=== PATIENT | female | born 1940 | race Caucasian/White ===

== ENCOUNTER → 2016-11-08 | Outpatient (CLI) | payer MEDICARE, BC ==
[~2016-11-08] MED LIST: B COMPLETE1 EACH PO; BIOTENE DRY M1000 ML; CALCIUM CITRATE1 TA1 PO; CALCIUM600 M2 PO; CARDI-OMEGA1000 MG PO; CARDIZEM120 M1 PO; CARDIZEM60 MG PO; CEPHALEXIN250 M2 PO; CETIRIZINE10 MG PO; CIPRO250 M1 PO; CLONAZEPAM0.5 MG PO; CLONAZEPAM1 MG PO; CLONAZEPAM2 MG PO; COUMADIN2.5 MG PO; DEMADEX 20MG20 MG; DEMADEX20 MG PO; DIGOXIN PO; DIGOXIN0.125 MG PO; DIGOXIN0.25 MG PO; DILAUDID 2MG TAB2 MG PO; DILTIAZEM CD120 MG PO; HYDROCODONE/IBU1 TA1 PO; IMDUR 30MG30 MG/TAB PO; IMURAN50 MG PO; ISOSORBIDE30 MG PO; K-POTASSIUM CH20 MEQ PO; KLONOPIN 1MG1 M1 PO; LEVAQUIN 750MG750 M1 PO; LIPITOR 10MG10 MG PO; MACROBID 1100 MG/CAP PO; MELOXICAM15 MG PO; MORPHINE SULFAT15 M7 PO; MS CONTIN 115 MG/TAB PO; MS CONTIN 660 MG/TAB PO; MS CONTIN15 MG PO; MS CONTIN30 MG PO; MS CONTIN60 MG PO; MSIR15 M1 PO; MSIR15 MG PO; MSIR30 M1 PO; NIACIN PO; POTASSIUM CHLO20 ME4 PO; POTASSIUM CHLO20 MEQ PO; PREDNISONE10 MG PO; PRENATAL FORMU1 EAC2 PO; PRENATAL MULTI1 EACH PO; PRENATAL1 TA2 PO; PROBIOTIC1 EAC1 PO; PROVENTIL0.09 MG/A1 IH; Patient's Own Medication PO; REQUIP2 MG PO; REQUIP3 M1 PO; RITE AID KRILL500 MG PO; SOTALOL HCL160 MG PO; SYSTANE LUBRICAN5 ML OP; TRAZODONE150 MG PO; VESICARE PO; VITAMIN D2000 I1 PO; WARFARIN2 MG PO; XARELTO20 MG PO; ZOFRAN ODT8 M1 PO; [UNRECOGNIZED DRUG - OTHER] PO
== END ==
LOC: LAB 11:08
DX: I50.32 Chronic diastolic (congestive) heart failure (principal); I48.0 Paroxysmal atrial fibrillation; M48.02 Spinal stenosis, cervical region

== ENCOUNTER → 2016-12-27 | Outpatient (CLI) | payer MEDICARE, BC | LOC: RAD 14:20 | DX: M54.2 Cervicalgia (principal) ==

== ENCOUNTER 2017-03-06 18:20 | Emergency (ER) | payer MEDICARE ==
[~2017-03-06] VITALS: Wt 51.7 kg
[2017-03-06 20:25] VITALS: BP 134/79
== END 2017-03-06 20:25 | disposition home or self-care (01) ==
LOC: ED 18:20
DX: S13.4XXA Sprain of ligaments of cervical spine, initial encounter (principal); Y04.8XXA Assault by other bodily force, initial encounter; Y92.009 Unspecified place in unspecified non-institutional (private) residence as the place of occurrence of the external cause; G90.50 Complex regional pain syndrome I, unspecified; Z86.73 Personal history of transient ischemic attack (TIA), and cerebral infarction without residual deficits; Z98.1 Arthrodesis status; Z79.01 Long term (current) use of anticoagulants; Z95.0 Presence of cardiac pacemaker; I48.91 Unspecified atrial fibrillation

== ENCOUNTER → 2017-09-10 | Outpatient (CLI) | payer MEDICARE ==
[2017-09-10 12:23] LABS: BASO # 0.1 (0.02-0.10); EOS # 0.5 (0.04-0.40); EOS % 3.8 % (1.0-5.0); HEMATOCRIT 44.2 % (37.0-47.0); HEMOGLOBIN 13.4 g/dL (12.5-16.0); LYMPH# 2.3 (1.50-4.00); MEAN CELL VOLUME 92 fl (78-100); MEAN CORPUSCULAR HEMOGLOBIN 28 pg (27-31); MEAN CORPUSCULAR HGB CONC 30 g/dL (33-37); MEAN PLATELET VOLUME 9.5 fl (7.4-10.4); MONO # 1.2 (0.20-0.80); PLATELET COUNT 336 K/mm3 (130-400); RED BLOOD COUNT 4.81 M/mm3 (4.10-5.30); RED CELL DISTRIBUTION WIDTH 14.4 % (11.5-14.5); WHITE BLOOD COUNT 13.7 K/mm3 (4.8-10.8)
[2017-09-10 12:26] LABS: NEU # 9.4 (1.40-6.50)
[2017-09-10 12:53] LABS: ALBUMIN 4.4 g/dL (3.5-5.0); BUN/CREATININE RATIO 25.2 (6.0-26.0); CALCIUM 9.6 mg/dL (8.4-10.2); POTASSIUM 4.6 mmol/L (3.6-5.0); TOTAL BILIRUBIN 0.8 mg/dL (0.2-1.3)
[2017-09-10 13:26] LABS: ERYTHROCYTE SEDIMENTATION RATE 24 mm/hr (0-30)
== END ==
LOC: RAD 11:30
PROVIDERS: Internal Medicine
DX: M19.072 Primary osteoarthritis, left ankle and foot (principal); M77.32 Calcaneal spur, left foot; M77.31 Calcaneal spur, right foot; I48.0 Paroxysmal atrial fibrillation; I50.32 Chronic diastolic (congestive) heart failure; R32 Unspecified urinary incontinence; Z88.8 Allergy status to other drugs, medicaments and biological substances; Z98.1 Arthrodesis status

== ENCOUNTER 2018-05-29 19:25 | Emergency (ER) | payer MEDICARE ==
[~2018-05-29] VITALS: Ht 154.9 cm; Wt 45.5 kg
[2018-05-29 21:19] LABS: BASO # 0.1 (0.02-0.10); EOS # 0.4 (0.04-0.40); EOS % 4.4 % (1.0-5.0); HEMATOCRIT 37.7 % (37.0-47.0); HEMOGLOBIN 12.2 g/dL (12.5-16.0); LYMPH# 2.3 (1.50-4.00); MEAN CELL VOLUME 92 fl (78-100); MEAN CORPUSCULAR HEMOGLOBIN 30 pg (27-31); MEAN CORPUSCULAR HGB CONC 32 g/dL (33-37); MEAN PLATELET VOLUME 10.3 fl (7.4-10.4); NEU # 4.4 (1.40-6.50); PLATELET COUNT 253 K/mm3 (130-400); RED BLOOD COUNT 4.09 M/mm3 (4.10-5.30); RED CELL DISTRIBUTION WIDTH 14.8 % (11.5-14.5); WHITE BLOOD COUNT 8.2 K/mm3 (4.8-10.8)
[2018-05-29 21:23] LABS: ALBUMIN 4.4 g/dL (3.5-5.0); CALCIUM 9.5 mg/dL (8.4-10.2); POTASSIUM 4.3 mmol/L (3.6-5.0); TOTAL BILIRUBIN 0.5 mg/dL (0.2-1.3); TOTAL PROTEIN 7.1 g/dL (6.3-8.2)
[2018-05-29 21:31] LABS: URINE APPEARANCE HAZY; URINE BILIRUBIN NEGATIVE (NEGATIVE); URINE BLOOD 50 ery/uL (NEGATIVE); URINE COLOR YELLOW; URINE GLUCOSE NEGATIVE (NEGATIVE); URINE KETONE NEGATIVE (NEGATIVE); URINE LEUKOCYTE ESTERASE 1+ (NEGATIVE); URINE NITRATE NEGATIVE (NEGATIVE); URINE PROTEIN(semi-quant) TRACE mg/dL (NEGATIVE); URINE UROBILINOGEN NORMAL (NORMAL)
[2018-05-29 21:32] LABS: URINE MUCUS PRESENT (NOT PRESENT)
[2018-05-29 23:31] VITALS: BP 164/91
[2018-05-29] MEDS ORDERED: MACROBID 100 M100 MG PO (23:41)
[2018-05-30 07:14] LABS: LIPASE 413 U/L (23-300)
== END 2018-05-29 23:31 | disposition home or self-care (01) ==
LOC: ED 19:25
PROVIDERS: Nurse Practitioner Family
DX: G43.909 Migraine, unspecified, not intractable, without status migrainosus (principal); N39.0 Urinary tract infection, site not specified; I11.0 Hypertensive heart disease with heart failure; I50.9 Heart failure, unspecified; Z86.73 Personal history of transient ischemic attack (TIA), and cerebral infarction without residual deficits; Z91.81 History of falling; Z79.899 Other long term (current) drug therapy; G89.29 Other chronic pain; G25.81 Restless legs syndrome; G62.9 Polyneuropathy, unspecified; I08.0 Rheumatic disorders of both mitral and aortic valves; Z79.01 Long term (current) use of anticoagulants
CPT/HCPCS: J1885; J2270; J2405; J7030

== ENCOUNTER → 2018-06-11 | Outpatient (CLI) | payer MEDICARE ==
[2018-06-02 19:02] VITALS: BP 115/70
[~2018-06-11] MED LIST changes: +MACROBID 100 M100 MG PO
== END ==
LOC: LAB 12:15
DX: M54.9 Dorsalgia, unspecified (principal)

== ENCOUNTER 2018-09-02 19:09 | Emergency (ER) | payer MEDICARE ==
[~2018-09-02] VITALS: Ht 154.9 cm; Wt 49.1 kg
[2018-09-02 19:59] LABS: HEMATOCRIT 37.1 % (37.0-47.0); HEMOGLOBIN 11.3 g/dL (12.5-16.0); MEAN CELL VOLUME 96 fl (78-100); MEAN CORPUSCULAR HEMOGLOBIN 29 pg (27-31); MEAN CORPUSCULAR HGB CONC 31 g/dL (33-37); PLATELET COUNT 222 K/mm3 (130-400); RED BLOOD COUNT 3.86 M/mm3 (4.10-5.30); RED CELL DISTRIBUTION WIDTH 14.8 % (11.5-14.5); WHITE BLOOD COUNT 8.1 K/mm3 (4.8-10.8)
[2018-09-02 20:14] LABS: ALBUMIN 4.3 g/dL (3.5-5.0); CALCIUM 9.3 mg/dL (8.4-10.2); POTASSIUM 3.7 mmol/L (3.6-5.0); TOTAL BILIRUBIN 0.6 mg/dL (0.2-1.3)
[2018-09-02] MEDS ORDERED: XARELTO15 MG PO (20:17)
[2018-09-02 20:43] LABS: LYMPHOCYTE 17 % (20-51); MONOCYTE 17 % (3-10); NEUTROPHILS 66 % (42-75)
[2018-09-02 20:44] LABS: OVALOCYTES 1+
[2018-09-02 21:17] VITALS: BP 140/84
== END 2018-09-02 21:40 | disposition home or self-care (01) ==
LOC: ED 19:09
PROVIDERS: Nurse Practitioner Family
DX: I11.0 Hypertensive heart disease with heart failure (principal); I50.9 Heart failure, unspecified; I48.91 Unspecified atrial fibrillation; Z79.01 Long term (current) use of anticoagulants; G89.29 Other chronic pain; R05 Cough; R07.89 Other chest pain; F41.9 Anxiety disorder, unspecified; F32.9 Major depressive disorder, single episode, unspecified; G90.50 Complex regional pain syndrome I, unspecified; G62.9 Polyneuropathy, unspecified; I08.0 Rheumatic disorders of both mitral and aortic valves; Z86.73 Personal history of transient ischemic attack (TIA), and cerebral infarction without residual deficits; Z79.899 Other long term (current) drug therapy; Z79.891 Long term (current) use of opiate analgesic

== ENCOUNTER → 2018-12-31 | Outpatient (CLI) | payer MEDICARE ==
[~2018-12-31] MED LIST changes: +XARELTO15 MG PO
== END ==
LOC: RAD 13:07
DX: M81.0 Age-related osteoporosis without current pathological fracture (principal); M61.40 Other calcification of muscle, unspecified site; M17.2 Bilateral post-traumatic osteoarthritis of knee; M19.011 Primary osteoarthritis, right shoulder

== ENCOUNTER → 2019-10-19 | Outpatient (CLI) | payer MEDICARE ==
[2019-10-19 14:40] LABS: HEMATOCRIT 30.2 % (37.0-47.0); HEMOGLOBIN 8.8 g/dL (12.5-16.0); MEAN PLATELET VOLUME 9.2 fl (7.4-10.4); RED BLOOD COUNT 3.35 M/mm3 (4.10-5.30); WHITE BLOOD COUNT 8.8 K/mm3 (4.8-10.8)
[2019-10-19 15:00] LABS: ALBUMIN 3.7 g/dL (3.4-4.8)
[2019-10-19 15:01] LABS: POTASSIUM 4.6 mmol/L (3.5-5.1)
[2019-10-19 15:02] LABS: CALCIUM 9.1 mg/dL (8.3-10.5)
[2019-10-19 15:03] LABS: TOTAL PROTEIN 6.7 g/dL (6.2-8.1)
[2019-10-19 15:05] LABS: TOTAL BILIRUBIN 0.7 mg/dL (0.2-1.2)
== END ==
LOC: RAD 14:10
PROVIDERS: Family Medicine
DX: K62.5 Hemorrhage of anus and rectum (principal); I50.32 Chronic diastolic (congestive) heart failure; D50.0 Iron deficiency anemia secondary to blood loss (chronic); J45.21 Mild intermittent asthma with (acute) exacerbation; I25.10 Atherosclerotic heart disease of native coronary artery without angina pectoris; I05.8 Other rheumatic mitral valve diseases; I06.0 Rheumatic aortic stenosis

== ENCOUNTER 2019-12-01 22:08 | Emergency (ER) | payer MEDICARE ==
[2019-12-01] MEDS ORDERED: NIFEREX-15150 MG/CAP PO (22:41)
[2019-12-01] MEDS ORDERED: EZETIMIBE10 M1 PO (22:41)
[2019-12-01] MEDS ORDERED: WARFARIN SODIU2.5 MG PO (22:42)
[2019-12-01] MEDS ORDERED: FUROSEMIDE20 MG PO (22:42)
[2019-12-01] MEDS ORDERED: B COMPLEX1 EACH PO (22:43)
[2019-12-01] MEDS ORDERED: KLONOPIN 0.5MG0.5 MG PO (22:45)
[2019-12-01] MEDS ORDERED: VITAMIN D325 MCG PO (22:45)
[2019-12-01] MEDS ORDERED: KRILL OIL500 MG PO (22:46)
[2019-12-01] MEDS ORDERED: LOPRESSOR 225 MG/TAB PO (22:47)
[2019-12-01] MEDS ORDERED: ROPINIROLE HYDRO3 MG PO (22:48)
[2019-12-01] MEDS ORDERED: PANTOPRAZOLE SO40 MG PO (22:48)
[2019-12-01] MEDS ORDERED: NITROSTAT0.4 M1 SL (22:48)
[2019-12-01] MEDS ORDERED: SYSTANE1 EACH OU (22:49)
[2019-12-01] MEDS ORDERED: VITAMIN B12 1541 TAB PO (22:50)
[2019-12-01] MEDS ORDERED: VITAMIN C500 M7 PO (22:51)
[2019-12-01 23:26] LABS: HEMATOCRIT 40.6 % (37.0-47.0); HEMOGLOBIN 12.2 g/dL (12.5-16.0); MEAN CELL VOLUME 84 fl (78-100); MEAN CORPUSCULAR HEMOGLOBIN 25 pg (27-31); MEAN CORPUSCULAR HGB CONC 30 g/dL (33-37); MEAN PLATELET VOLUME 9.9 fl (7.4-10.4); PLATELET COUNT 314 K/mm3 (130-400); RED BLOOD COUNT 4.81 M/mm3 (4.10-5.30); RED CELL DISTRIBUTION WIDTH 17.2 % (11.5-14.5); WHITE BLOOD COUNT 11.2 K/mm3 (4.8-10.8)
[2019-12-01 23:34] LABS: ALBUMIN 4.8 g/dL (3.4-4.8); POTASSIUM 4.5 mmol/L (3.5-5.1)
[2019-12-01 23:36] LABS: CALCIUM 10.4 mg/dL (8.3-10.5)
[2019-12-01 23:37] LABS: TOTAL PROTEIN 8.2 g/dL (6.2-8.1)
[2019-12-01 23:39] LABS: TOTAL BILIRUBIN 0.5 mg/dL (0.2-1.2)
[2019-12-01 23:41] LABS: PROTHROMBIN TIME 15.8 SECONDS (9.0-12.0)
[2019-12-01 23:44] LABS: HYPOCHROMIA 1+; LYMPHOCYTE 8 % (20-51); MONOCYTE 7 % (3-10); NEUTROPHILS 83 % (42-75)
[2019-12-01 23:45] LABS: OVALOCYTES 1+; TARGET CELLS 1+
[2019-12-02 00:51] LABS: URINE APPEARANCE HAZY; URINE BILIRUBIN NEGATIVE (NEGATIVE); URINE BLOOD NEGATIVE (NEGATIVE); URINE COLOR YELLOW; URINE GLUCOSE NEGATIVE (NEGATIVE); URINE KETONE NEGATIVE (NEGATIVE); URINE LEUKOCYTE ESTERASE NEGATIVE (NEGATIVE); URINE NITRATE NEGATIVE (NEGATIVE); URINE PROTEIN(semi-quant) TRACE mg/dL (NEGATIVE); URINE UROBILINOGEN NORMAL (NORMAL); URINE WBC 0-1 /hpf (0-3)
[2019-12-02 02:05] VITALS: BP 105/55
== END 2019-12-02 02:04 | disposition home or self-care (01) ==
LOC: ED 22:08
PROVIDERS: Nurse Practitioner Family
DX: R19.7 Diarrhea, unspecified (principal); E86.0 Dehydration; I13.0 Hypertensive heart and chronic kidney disease with heart failure and stage 1 through stage 4 chronic kidney disease, or unspecified chronic kidney disease; I50.9 Heart failure, unspecified; N18.9 Chronic kidney disease, unspecified; I48.91 Unspecified atrial fibrillation; F41.9 Anxiety disorder, unspecified; F32.9 Major depressive disorder, single episode, unspecified; G62.9 Polyneuropathy, unspecified; G25.81 Restless legs syndrome; I08.0 Rheumatic disorders of both mitral and aortic valves; Z79.01 Long term (current) use of anticoagulants; Z86.718 Personal history of other venous thrombosis and embolism; Z90.49 Acquired absence of other specified parts of digestive tract; Z95.0 Presence of cardiac pacemaker
CPT/HCPCS: J7120

== ENCOUNTER → 2019-12-02 | Outpatient (CLI) | payer MEDICARE ==
[~2019-12-02] MED LIST changes: +B COMPLEX1 EACH PO; +EZETIMIBE10 M1 PO; +FUROSEMIDE20 MG PO; +KLONOPIN 0.5MG0.5 MG PO; +KRILL OIL500 MG PO; +LOPRESSOR 225 MG/TAB PO; +NIFEREX-15150 MG/CAP PO; +NITROSTAT0.4 M1 SL; +PANTOPRAZOLE SO40 MG PO; +ROPINIROLE HYDRO3 MG PO; +SYSTANE1 EACH OU; +VITAMIN B12 1541 TAB PO; +VITAMIN C500 M7 PO; +VITAMIN D325 MCG PO; +WARFARIN SODIU2.5 MG PO
[2019-12-02 02:05] VITALS: BP 105/55
== END ==
LOC: AMSURD 15:42 → LAB 15:42
DX: R00.1 Bradycardia, unspecified (principal)

== ENCOUNTER 2020-01-12 20:06 | Emergency (ER) | payer MEDICARE ==
[~2020-01-12] VITALS: Wt 47.7 kg
[~2020-01-12 20:06] MED LIST changes: -DIGOXIN PO; -KLONOPIN 0.5MG0.5 MG PO; +KLONOPIN 1MG1 MG PO; +LANOXIN125 MCG PO; +SYSTANE COMPLET10 ML OU; -SYSTANE1 EACH OU
[2020-01-12] MEDS ORDERED: COUMADIN 22.5 MG/TAB PO (20:30)
[2020-01-12] MEDS ORDERED: ROPINIROLE HCL1 MG PO (20:32)
[2020-01-12] MEDS ORDERED: HAIR, SKIN & N1 EACH PO (20:33)
[2020-01-12 21:10] LABS: HEMATOCRIT 34.4 % (37.0-47.0); HEMOGLOBIN 10.1 g/dL (12.5-16.0); MEAN CELL VOLUME 92 fl (78-100); MEAN CORPUSCULAR HEMOGLOBIN 27 pg (27-31); MEAN PLATELET VOLUME 9.4 fl (7.4-10.4); PLATELET COUNT 233 K/mm3 (130-400); RED BLOOD COUNT 3.76 M/mm3 (4.10-5.30)
[2020-01-12 21:13] LABS: MEAN CORPUSCULAR HGB CONC 29 g/dL (33-37); RED CELL DISTRIBUTION WIDTH 23.4 % (11.5-14.5)
[2020-01-12 21:18] LABS: ALBUMIN 3.7 g/dL (3.4-4.8)
[2020-01-12 21:19] LABS: POTASSIUM 4.4 mmol/L (3.5-5.1)
[2020-01-12 21:20] LABS: CALCIUM 9.1 mg/dL (8.3-10.5)
[2020-01-12 21:21] LABS: PROTHROMBIN TIME 10.6 SECONDS (9.0-12.0); TOTAL PROTEIN 6.4 g/dL (6.2-8.1)
[2020-01-12 21:23] LABS: TOTAL BILIRUBIN 0.4 mg/dL (0.2-1.2)
[2020-01-12 21:24] LABS: LYMPHOCYTE 15 % (20-51); MONOCYTE 11 % (3-10); NEUTROPHILS 70 % (42-75)
[2020-01-12 21:25] LABS: OVALOCYTES 1+; TARGET CELLS 1+
[2020-01-12 21:40] LABS: URINE APPEARANCE CLEAR; URINE COLOR YELLOW
[2020-01-12 21:41] LABS: URINE BILIRUBIN NEGATIVE (NEGATIVE); URINE BLOOD TRACE (NEGATIVE); URINE GLUCOSE NEGATIVE (NEGATIVE); URINE KETONE NEGATIVE (NEGATIVE); URINE LEUKOCYTE ESTERASE NEGATIVE (NEGATIVE); URINE NITRATE NEGATIVE (NEGATIVE); URINE PROTEIN(semi-quant) TRACE mg/dL (NEGATIVE); URINE UROBILINOGEN NORMAL (NORMAL); URINE WBC 0-1 /hpf (0-3)
[2020-01-12 22:46] VITALS: BP 113/60
== END 2020-01-12 23:15 | disposition home or self-care (01) ==
LOC: ED 20:06
PROVIDERS: Nurse Practitioner Family
DX: R07.81 Pleurodynia (principal); R10.9 Unspecified abdominal pain; R79.1 Abnormal coagulation profile; I50.9 Heart failure, unspecified; I48.91 Unspecified atrial fibrillation; F32.9 Major depressive disorder, single episode, unspecified; Z86.73 Personal history of transient ischemic attack (TIA), and cerebral infarction without residual deficits; Z79.01 Long term (current) use of anticoagulants; W01.0XXA Fall on same level from slipping, tripping and stumbling without subsequent striking against object, initial encounter; Y92.009 Unspecified place in unspecified non-institutional (private) residence as the place of occurrence of the external cause
CPT/HCPCS: J2405; Q9967